=== PATIENT | female | born 1990 | race Caucasian/White ===

== ENCOUNTER 2018-10-07 01:33 | Emergency (ER) | payer OTHER ==
[~2018-10-07] VITALS: Ht 177.8 cm; Wt 72.6 kg
[~2018-10-07 01:33] MED LIST: CIPROFLOXACIN500 M1 PO; IMITREX100 MG PO; NUVARING VAGIN1 EACH; PERCOCET PO; UNICOMPLEX M TA1 TA1 PO; VENTOLIN HFA 1818 GM INH; ZOFRAN4 MG PO
[2018-10-07] MEDS ORDERED: PREDNISONE50 MG PO (02:26)
[2018-10-07 02:56] VITALS: BP 121/79
== END 2018-10-07 02:56 | disposition home or self-care (01) ==
LOC: M.ERS 01:33
DX: L50.9 Urticaria, unspecified (principal); T38.0X5A Adverse effect of glucocorticoids and synthetic analogues, initial encounter; Y92.89 Other specified places as the place of occurrence of the external cause; J45.909 Unspecified asthma, uncomplicated; Z88.7 Allergy status to serum and vaccine